=== PATIENT | female | born 1990 | race Caucasian/White ===

== ENCOUNTER 2017-08-18 08:34 | Emergency (ER) | payer OTHER ==
[~2017-08-18] VITALS: Ht 165.1 cm; Wt 76.0 kg
[2017-08-18 08:35] VITALS: BP 130/84
[2017-08-18] MEDS ORDERED: IBUPROFEN 200 MG TABLET ONE (08:56)
[2017-08-18] MEDS ORDERED: IBUPROFEN 200 MG TABLET PO ONE (09:00)
[2017-08-18] MEDS ORDERED: LORA-702 PO (09:21)
[2017-08-18] MEDS ORDERED: BIRTH CONTROL (09:21)
[2017-08-18] MEDS ORDERED: FLUO10TA PO (09:21)
== END 2017-08-18 09:52 | disposition home or self-care (01) ==
LOC: ED 09:26
DX: J02.8 Acute pharyngitis due to other specified organisms (principal); B97.89 Other viral agents as the cause of diseases classified elsewhere; J45.909 Unspecified asthma, uncomplicated
CPT/HCPCS: 87081; 87880; 99284